=== PATIENT | male | born 1975 | race American Indian/Alaskan Native ===

== ENCOUNTER 2019-09-11 19:39 | Emergency (ER) | payer SELFPAY ==
--- NOTE | 2019-09-11 20:31 | Emergency Department Report ---
ED ENT HPI - General Chief complaint: Dental/Oral Stated complaint: BAD TOOTH PAIN Time Seen by Provider: 09/11/19 19:55 Source: patient Mode of arrival: Ambulatory Limitations: No Limitations - History of Present Illness Initial comments: Patient is a 44-year-old male who presents emergency room with complaints of right lower dental pain that began 3 days ago. He states that he last saw a dentist last year and was advised that the tooth needed to be extracted but he did not follow back up. He states he could not get an appointment until next week. He states that the pain is causing his right ear to hurt. He denies any fever, nausea, vomiting, diarrhea, chills. He denies any past medical history or allergies to medications. - Related Data Previous Rx's Medication Instructions Recorded Last Taken Type Ibuprofen [Motrin 600 MG tab] 600 mg PO Q8H PRN #20 tablet 09/11/19 Unknown Rx Penicillin Vk [Veetids TAB] 500 mg PO QID 7 Days #56 tablet 09/11/19 Unknown Rx Allergies Allergy/AdvReac Type Severity Reaction Status Date / Time No Known Allergies Allergy Unverified 09/11/19 19:43 ED Dental HPI - General Chief complaint: Dental/Oral Stated complaint: BAD TOOTH PAIN Time Seen by Provider: 09/11/19 19:55 Source: patient Mode of arrival: Ambulatory Limitations: No Limitations - Related Data Previous Rx's Medication Instructions Recorded Last Taken Type Ibuprofen [Motrin 600 MG tab] 600 mg PO Q8H PRN #20 tablet 09/11/19 Unknown Rx Penicillin Vk [Veetids TAB] 500 mg PO QID 7 Days #56 tablet 09/11/19 Unknown Rx Allergies Allergy/AdvReac Type Severity Reaction Status Date / Time No Known Allergies Allergy Unverified 09/11/19 19:43 ED Review of Systems ROS: Stated complaint: BAD TOOTH PAIN Other details as noted in HPI Comment: All other systems reviewed and negative ED Past Medical Hx - Past Medical History Previous Medical History?: No - Surgical History Past Surgical History?: Yes Additional Surgical History: Toe sugery at 6 yrs old - Social History Smoking Status: Light Tobacco Smoker - Medications Home Medications: Home Medications Medication Instructions Recorded Confirmed Last Taken Type Ibuprofen [Motrin 600 MG tab] 600 mg PO Q8H PRN #20 tablet 09/11/19 Unknown Rx Penicillin Vk [Veetids TAB] 500 mg PO QID 7 Days #56 tablet 09/11/19 Unknown Rx ED Physical Exam - General Limitations: No Limitations General appearance: alert, in no apparent distress - Head Head exam: Present: atraumatic, normocephalic - Eye Eye exam: Present: normal appearance - ENT ENT exam: Present: normal orophraynx, mucous membranes moist, TM's normal bilaterally, normal external ear exam, other (there are multiple fillings present, pt has right lower molar ttp, there is very small edema present to the right lower gum line, no induration or fluctuance, uvula is midline, no uvular edema, no deviation of the uvula, no elevation of the tongue, no muffled voice) - Neurological Exam Neurological exam: Present: alert, oriented X3 - Psychiatric Psychiatric exam: Present: normal affect, normal mood - Skin Skin exam: Present: warm, dry, intact ED Course Vital Signs 09/11/19 09/11/19 19:42 20:42 Temperature 97.9 F 98.1 F Pulse Rate 82 65 Respiratory 18 16 Rate Blood Pressure 181/89 Blood Pressure 154/86 [Left] O2 Sat by Pulse 99 100 Oximetry ED Medical Decision Making - Medical Decision Making Patient is a 44-year-old male who presents emergency room with complaints of right lower dental pain that began 3 days ago. He states that he last saw a dentist last year and was advised that the tooth needed to be extracted but he did not follow back up. He states he could not get an appointment until next week. He states that the pain is causing his right ear to hurt. He denies any fever, nausea, vomiting, diarrhea, chills. He denies any past medical history or allergies to medications. Vitals with elevated blood pressure which improved upon repeat. on exam: there are multiple fillings present, pt has right lower molar ttp, there is very small edema present to the right lower gum line, no induration or fluctuance, uvula is midline, no uvular edema, no deviation of the uvula, no elevation of the tongue, no muffled voice. Could represent early dental abscess. TMs and canals are normal bilaterally. Patient will be placed on penicillin VK and ibuprofen for discomfort. advised pt Please take medication as prescribed. Please follow-up with a dentist. It is very important that you follow-up with a dentist for a permanent solution. Return to the emergency room for any new or worsening symptoms. Critical care attestation.: If time is entered above; I have spent that time in minutes in the direct care of this critically ill patient, excluding procedure time. ED Disposition Clinical Impression: Dental caries, Dental abscess Disposition: TO HOME OR SELFCARE Is pt being admited?: No Does the pt Need Aspirin: No Condition: Stable Instructions: Dental Abscess (ED), Dental Caries (ED) Additional Instructions: Please take medication as prescribed. Please follow-up with a dentist. It is very important that you follow-up with a dentist for a permanent solution. Return to the emergency room for any new or worsening symptoms. Prescriptions: Ibuprofen [Motrin 600 MG tab] 600 mg PO Q8H PRN #20 tablet PRN Reason: Pain Penicillin Vk [Veetids TAB] 500 mg PO QID 7 Days #56 tablet Referrals: [facility] [Outside] - 2-3 Days [facility] [Outside] - 2-3 Days Forms: Work/School Release Form(ED) Time of Disposition: 20:29 Print Language: ICELANDIC
[2019-09-11 20:43] VITALS: BP 154/86
== END 2019-09-11 20:44 | disposition home or self-care (01) ==
LOC: ED 19:39
DX: K02.9 Dental caries, unspecified (principal); K04.7 Periapical abscess without sinus; F17.200 Nicotine dependence, unspecified, uncomplicated; Z98.890 Other specified postprocedural states; Z79.1 Long term (current) use of non-steroidal anti-inflammatories (NSAID); Z79.2 Long term (current) use of antibiotics
CPT/HCPCS: 99282